=== PATIENT | male | born 1955 | race Two or more races ===

== ENCOUNTER → 2018-12-08 16:35 | Outpatient (CLI) | payer OTHER | END | disposition home or self-care (01) | LOC: D.LABREF 16:35 | PROVIDERS: ATTEND Internal Medicine Nephrology | DX: Z51.81 Encounter for therapeutic drug level monitoring (principal); Z79.01 Long term (current) use of anticoagulants ==

== ENCOUNTER 2019-01-17 08:00 | Observation (INO) | payer MEDICARE, MEDICAID ==
[2019-01-17] VITALS: BP 138/60
[~2019-01-17] VITALS: Ht 177.8 cm; Wt 109.6 kg
[2019-01-17 17:14] LABS: BASOPHILS 0.6 % (0-2); EOSINOPHILS 5.1 % (0-7); HEMATOCRIT 36.8 % (42.0-54.0); HEMOGLOBIN 11.7 g/dL (13.5-17.5); IMMATURE GRANULOCYTES 0.5 % (0-5); LYMPHOCYTES 8.6 % (15-50); MCH 29.8 pg (26.0-34.0); MCHC 31.8 g/dL (31.0-37.0); MCV 93.9 fL (80.0-100.0); MEAN PLATELET VOLUME 9.6 fL (7.4-10.4); MONOCYTES 7.4 % (2-11); NEUTROPHILS 77.8 % (40-80); PLATELET COUNT 185 10x3/uL (130-400); RBC 3.92 10x6/uL (4.20-6.10); RDW 16.8 % (11.5-14.5); WBC 8.2 10x3/uL (4.8-10.8)
[2019-01-17 17:49] LABS: ALBUMIN 3.1 g/dL (3.4-5.0); ANION GAP 17.1 mmol/L (8-16); BILIRUBIN - TOTAL 0.45 mg/dL (0.2-1.3); CARBON DIOXIDE 26.5 mmol/L (21.0-32.0); POTASSIUM - SERUM 4.6 mmol/L (3.5-5.1); PROTEIN - SERUM 6.6 g/dL (6.4-8.2)
[2019-01-17 18:18] VITALS: BP 151/65
[2019-01-17] MEDS ORDERED: NORVASC5 MG PO (18:27)
[2019-01-17] MEDS ORDERED: DONEPEZIL HCL5 MG PO (18:27)
[2019-01-17] MEDS ORDERED: C-10001000 MG PO (18:28)
[2019-01-17] MEDS ORDERED: COENZYME Q1030 MG PO (18:29)
[2019-01-17] MEDS ORDERED: CELEXA10 MG PO (18:29)
[2019-01-17] MEDS ORDERED: CARDURA1 MG PO (18:32)
[2019-01-17] MEDS ORDERED: FERROUS SULFAT325 MG PO (18:32)
[2019-01-17] MEDS ORDERED: FLUTICASONE PRO16 GM NASAL (18:33)
[2019-01-17] MEDS ORDERED: GABAPENTIN100 MG PO (18:33)
[2019-01-17] MEDS ORDERED: LANTUS SOL100 UNIT/1 SC (18:35)
[2019-01-17] MEDS ORDERED: ROBAXIN500 MG PO (18:36)
[2019-01-17] MEDS ORDERED: MIRALAX17 GM PO (18:36)
[2019-01-17] MEDS ORDERED: MIRAPEX0.25 MG PO (18:37)
[2019-01-17] MEDS ORDERED: HYDROCODON-ACE1 EA10 PO (18:38)
[2019-01-17] MEDS ORDERED: PHOSLO667 MG PO (18:39)
[2019-01-17] MEDS ORDERED: PROMOD LIQUID P30 M1 PO (18:40)
[2019-01-17] MEDS ORDERED: PRAVACHOL20 MG PO (18:40)
[2019-01-17] MEDS ORDERED: PROTONIX40 MG PO (18:41)
[2019-01-17] MEDS ORDERED: RANITIDINE HCL150 M1 PO (18:42)
[2019-01-17] MEDS ORDERED: RENA-VITE TABL0.8 MG PO (18:42)
[2019-01-17] MEDS ORDERED: SINGULAIR10 MG PO (18:43)
[2019-01-17] MEDS ORDERED: ZOLOFT50 MG PO (18:43)
[2019-01-17] MEDS ORDERED: SODIUM BICARBO650 MG PO (18:44)
[2019-01-17] MEDS ORDERED: TRAMADOL HCL E100 M1 PO (18:45)
[2019-01-17] MEDS ORDERED: ZYLOPRIM100 MG PO (18:46)
[2019-01-17 20:00] VITALS: BP 143/66
[2019-01-18 00:59] VITALS: BP 143/66
[2019-01-18 04:00] VITALS: BP 90/42
[2019-01-18 05:13] LABS: BASOPHILS 0.6 % (0-2); EOSINOPHILS 5.7 % (0-7); HEMATOCRIT 35.7 % (42.0-54.0); HEMOGLOBIN 11.3 g/dL (13.5-17.5); IMMATURE GRANULOCYTES 0.3 % (0-5); LYMPHOCYTES 14.5 % (15-50); MCH 29.6 pg (26.0-34.0); MCHC 31.7 g/dL (31.0-37.0); MCV 93.5 fL (80.0-100.0); MEAN PLATELET VOLUME 10.3 fL (7.4-10.4); MONOCYTES 7.6 % (2-11); NEUTROPHILS 71.3 % (40-80); PLATELET COUNT 191 10x3/uL (130-400); RBC 3.82 10x6/uL (4.20-6.10); RDW 16.8 % (11.5-14.5); WBC 7.3 10x3/uL (4.8-10.8)
[2019-01-18 05:26] LABS: INR 1.75 (0.85-1.17); PROTIME 19.8 SECONDS (11.6-15.0)
[2019-01-18 05:46] LABS: ANION GAP 15.7 mmol/L (8-16); CALCIUM 8.5 mg/dL (8.5-10.1); CARBON DIOXIDE 28.5 mmol/L (21.0-32.0); CREATININE - SERUM 6.1 mg/dL (0.6-1.3); POTASSIUM - SERUM 5.2 mmol/L (3.5-5.1)
[2019-01-18 13:01] VITALS: BP 144/65
--- NOTE | 2019-01-18 14:16 | MORECARE ---
CASE MANAGEMENT DISCHARGE SUMMARY PATIENT: INDU FALCON UNIT: [id number] ADM DATE: 01/17/19 AGE: 63 : 55 SEX: M ROOM/BED: D.2131 AUTHOR: TIM ROMANO PHYSICIAN: REFERRING PHYSICIAN: ANTOLIN FLOOD MD DATE OF SERVICE: 01/18/19 Discharge Plan Patient Name: INDU FALCON [facility] [facility] 1955 Planned Disposition: Home Anticipated Discharge Date: 01/19/19 Discharge Date: Expected LOS: 2 Initial Reviewer: [id number] Initial Review Date: 01/17/2019 Generated: 01/18/19 3:16 pm DCPIA - Discharge Planning Initial Assessment Updated by [email or web address]: Mae Brown on 01/18/19 2:14 pm * Is the patient Alert and Oriented? No * How many steps to enter\exit or inside your home? * PCP DR FLOOD, PCP AND SEE'S THE [place] DOCTOR ON ROUNDS * Pharmacy [facility] * Preadmission Environment Associate Publisher Acute Care Facility * Facility Name [facility] CB: [phone] F: [phone] * ADLs Partial Dependent * Partial ADLs (Assistance needed) Bathing Medication Management Transfers * Equipment Shower Chair Wheelchair * List name and contact numbers for known caregivers / representatives who currently or will assist patient after discharge: GUEVARA FALCON, SISTER, * Verbal permission to speak to the caregivers and representatives has been obtained from the patient. Yes * Community resources currently utilized None * Additional services required to return to the preadmission environment? No * Can the patient safely return to the preadmission environment? Yes * Has this patient been hospitalized within the prior 30 days at any hospital? No Patient Name: INDU FALCON Page 64387 at 1416 All edits/amendments must be made on the electronic document DICTATION DATE: 01/18/19 1416 CONCIERGE: ORSS 01/18/19 1416 RPT#: [id number] DC DATE: STATUS: ADM IN [facility] [address] [place] [address] END OF REPORT
[2019-01-18 14:23] VITALS: Ht 177.8 cm; Wt 109.6 kg
--- NOTE | 2019-01-18 14:24 | MORECARE ---
CASE MANAGEMENT DISCHARGE SUMMARY PATIENT: INDU FALCON UNIT: [id number] ADM DATE: 01/17/19 AGE: 63 : 55 SEX: M ROOM/BED: D.2131 AUTHOR: TIM ROMANO PHYSICIAN: REFERRING PHYSICIAN: ANTOLIN FLOOD MD DATE OF SERVICE: 01/18/19 Discharge Plan Patient Name: INDU FALCON Facility: [facility]:[place] : 1955 Planned Disposition: Home Anticipated Discharge Date: 01/19/19 Discharge Date: Expected LOS: 2 Initial Reviewer: [id number] Initial Review Date: 01/17/2019 Generated: 01/18/19 3:24 pm Comments DCP- Discharge Planning Updated by [id number]: Mae Brown on 01/18/19 1:[address] Patient Name: INDU FALCON Admission Status: Elective Accout number: [id number] Admission Date: 01-17-2019 : 1955 Admission Diagnosis: Attending: ANTOLIN FLOOD Current LOS: 1 Anticipated DC Date: 01-19-2019 Planned Disposition: Home Primary Insurance: HUMANA CHOICE PPO MCR ADVANT Discharge Planning Comments: WAS ASKED BY DR LOZADA TO FIND OUT IF THE PATIENT'S NH WOULD BRIDGE THERAPY WITH LOVENOX UNTIL THERAPEUTIC 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 THERE IS NO [facility] INFORMATION IN THE CHART AT ALL. WENT TO THE ROOM TO SPEAK WITH THE PATIENT AND HE IS VERY GROGGY, NOT ABLE TO STAY AWAKE FOR CONVERSATION. HIS SISTER GUEVARA IS AT BEDSIDE AND IS LISTED EMERGENCY CONTACT IN THE COMPUTER. IDENTIFIES ASKED AND GIVEN BY SISTER. ASKED HER WHAT FACILITY THE PATIENT CAME FROM. SHE STATED IT WAS [facility] BY THE [employer]. SHE STATED THAT HE PATIENT IS RETURNING TO THIS FACILITY. HE DOES REQUIRE ASSISTANCE WITH SOME ADL'S. PER HER, THE [facility] IS SUPPLYING NEEDED MEDICAL EQUIPMENT AND HIS MEDICATIONS. NO NEEDS VOICED AT THIS TIME. SPOKE WITH JUSTINA GRIJALVA, CLINICAL LIASON FOR THE [facility]. SHE CONFIRMED THAT THE FACILITY CAN DO LOVENOX. SHE STATED SHE WILL HAVE TO CONFIRM IF THE PATIENT IS INTERMEDIATE CARE OR SKILLED. IF SKILLED THE PATIENT IS GOING TO REQUIRE AUTH IN ORDER TO RETURN. WILL AWAIT RETURN CALL AND FAX UPDATE. Business Banking Sales Assistant: Mae Brown DCPIA - Discharge Planning Initial Assessment Updated by [email or web address]: Mae Brown on 01/18/19 2:14 pm * Is the patient Alert and Oriented? No * How many steps to enter\exit or inside your home? * PCP DR FLOOD, PCP AND SEE'S THE [place] DOCTOR ON ROUNDS * Pharmacy [facility] * Preadmission Environment [facility] Performer Acute Care Facility * Facility Name [facility] CB: [phone] F: [phone] * ADLs Partial Dependent * Partial ADLs (Assistance needed) Bathing Medication Management Transfers * Equipment Shower Chair Wheelchair * List name and contact numbers for known caregivers / representatives who currently or will assist patient after discharge: GUEVARA FALCON, SISTER, * Verbal permission to speak to the caregivers and representatives has been obtained from the patient. Yes * Community resources currently utilized None * Additional services required to return to the preadmission environment? No * Can the patient safely return to the preadmission environment? Yes * Has this patient been hospitalized within the prior 30 days at any hospital? No External Providers [facility] Next Contact Date: Service Request Date: Service Type: Resolution: Reviewer: Comments: Last DP export: 01/18/19 1:16 p Patient Name: INDU FALCON Page 30002 at 1424 All edits/amendments must be made on the electronic document DICTATION DATE: 01/18/191423 WEAPONS AND TACTICS INSTRUCTOR: ROSS 01/18/191423 RPT#: [id number] VA DATE: STATUS: ADM IN [facility] [address] [place] [address] END OF REPORT
[2019-01-18 17:42] VITALS: BP 121/76
[2019-01-18 20:00] VITALS: BP 149/90; BP 163/71
[2019-01-19] VITALS: BP 147/66
[2019-01-19 04:00] VITALS: BP 164/72
[2019-01-19 04:49] LABS: INR 1.53 (0.85-1.17); PROTIME 17.8 SECONDS (11.6-15.0)
[2019-01-19 04:51] LABS: BASOPHILS 0.3 % (0-2); EOSINOPHILS 4.4 % (0-7); HEMATOCRIT 34.7 % (42.0-54.0); HEMOGLOBIN 10.9 g/dL (13.5-17.5); IMMATURE GRANULOCYTES 0.2 % (0-5); MCH 29.6 pg (26.0-34.0); MCHC 31.4 g/dL (31.0-37.0); MCV 94.3 fL (80.0-100.0); MEAN PLATELET VOLUME 10.2 fL (7.4-10.4); MONOCYTES 7.5 % (2-11); NEUTROPHILS 77.6 % (40-80); PLATELET COUNT 194 10x3/uL (130-400); RBC 3.68 10x6/uL (4.20-6.10); RDW 16.7 % (11.5-14.5); WBC 9.1 10x3/uL (4.8-10.8)
[2019-01-19 05:03] LABS: ANION GAP 16.9 mmol/L (8-16); CALCIUM 8.2 mg/dL (8.5-10.1); CREATININE - SERUM 7.3 mg/dL (0.6-1.3); POTASSIUM - SERUM 5.9 mmol/L (3.5-5.1)
[2019-01-19 05:07] LABS: PHOSPHOROUS 10.1 mg/dL (2.5-4.9)
[2019-01-19] MEDS ORDERED: COUMADIN2.5 MG PO (08:06)
--- NOTE | 2019-01-19 12:05 | MORECARE ---
CASE MANAGEMENT DISCHARGE SUMMARY PATIENT: INDU FALCON UNIT: [id number] ADM DATE: 01/17/19 AGE: 63 : 55 SEX: M ROOM/BED: D.2131 AUTHOR: TIM ROMANO PHYSICIAN: REFERRING PHYSICIAN: ANTOLIN FLOOD MD DATE OF SERVICE: 01/19/19 Discharge Plan Patient Name: INDU FALCON [facility] [facility] 1955 Planned Disposition: Nursing Facility GREG Cert Anticipated Discharge Date: 01/19/19 Discharge Date: Expected LOS: 2 Initial Reviewer: [id number] Initial Review Date: 01/17/2019 Generated: 01/19/19 1:04 pm Comments DCP- Discharge Planning Updated by [id number]: Mae Brown on 01/18/19 1:[address] Patient Name: INDU FALCON Admission Status: Elective Accout number: [id number] Admission Date: 01-17-2019 : 1955 Admission Diagnosis: Attending: ANTOLIN FLOOD Current LOS: 1 Anticipated DC Date: 01-19-2019 Planned Disposition: Home Primary Insurance: HUMANA CHOICE PPO MCR ADVANT Discharge Planning Comments: WAS ASKED BY DR LOZADA TO FIND OUT IF THE PATIENT'S NH WOULD BRIDGE THERAPY WITH LOVENOX UNTIL THERAPEUTIC 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 THERE IS NO PENITENTIARY INFORMATION IN THE CHART AT ALL. WENT TO THE ROOM TO SPEAK WITH THE PATIENT AND HE IS VERY GROGGY, NOT ABLE TO STAY AWAKE FOR CONVERSATION. HIS SISTER GUEVARA IS AT BEDSIDE AND IS LISTED EMERGENCY CONTACT IN THE COMPUTER. IDENTIFIES ASKED AND GIVEN BY SISTER. ASKED HER WHAT FACILITY THE PATIENT CAME FROM. SHE STATED IT WAS [facility]. SHE STATED THAT HE PATIENT IS RETURNING TO THIS FACILITY. HE DOES REQUIRE ASSISTANCE WITH SOME ADL'S. PER HER, THE [facility] IS SUPPLYING NEEDED MEDICAL EQUIPMENT AND HIS MEDICATIONS. NO NEEDS VOICED AT THIS TIME. SPOKE WITH JUSTINA GRIJALVA, CLINICAL LIASON FOR THE [facility]. SHE CONFIRMED THAT THE FACILITY CAN DO LOVENOX. SHE STATED SHE WILL HAVE TO CONFIRM IF THE PATIENT IS SHELTER CARE OR SKILLED. IF SKILLED THE PATIENT IS GOING TO REQUIRE AUTH IN ORDER TO RETURN. WILL AWAIT RETURN CALL AND FAX UPDATE. Manager Privacy: Mae House DCPIA - Discharge Planning Initial Assessment Updated by [email or web address]: Mae Brown on 01/18/19 2:14 pm * Is the patient Alert and Oriented? No * How many steps to enter\exit or inside your home? * PCP DR FLOOD, PCP AND SEE'S THE ME DOCTOR ON ROUNDS * Pharmacy [facility] * Preadmission Environment Group Home Acute Care Facility * Facility Name [facility] CB: [phone] F: [phone] * ADLs Partial Dependent * Partial ADLs (Assistance needed) Bathing Medication Management Transfers * Equipment Shower Chair Wheelchair * List name and contact numbers for known caregivers / representatives who currently or will assist patient after discharge: GUEVARA FALCON, SISTER, * Verbal permission to speak to the caregivers and representatives has been obtained from the patient. Yes * Community resources currently utilized None * Additional services required to return to the preadmission environment? No * Can the patient safely return to the preadmission environment? Yes * Has this patient been hospitalized within the prior 30 days at any hospital? No Last DP export: 01/18/19 1:24 p Patient Name: INDU FALCON Page 71206 at 1205 All edits/amendments must be made on the electronic document DICTATION DATE: 01/19/191203 DIRECTOR OF PATIENT CARE: ROSS 01/19/191203 RPT#: [id number] DC DATE: STATUS: ADM IN [facility] [address] [place] [address] END OF REPORT
--- NOTE | 2019-01-19 12:13 | MORECARE ---
CASE MANAGEMENT DISCHARGE SUMMARY PATIENT: INDU FALCON UNIT: [id number] ADM DATE: 01/17/19 AGE: 63 : 55 SEX: M ROOM/BED: D.2131 AUTHOR: JUAN ANTONIO,DOC PHYSICIAN: REFERRING PHYSICIAN: ANTOLIN FLOOD MD DATE OF SERVICE: 01/19/19 Discharge Plan Patient Name: INDU FALCON Facility: [facility]:[place] : 1955 Planned Disposition: Nursing Facility GREG Cert Anticipated Discharge Date: 01/19/19 Discharge Date: Expected LOS: 2 Initial Reviewer: [id number] Initial Review Date: 01/17/2019 Generated: 01/19/19 1:12 pm Comments DCP- Discharge Planning Updated by [id number]: Oc Pérez on 01/19/19 11:[address] Patient Name: INDU FALCON Encounter No: [id number] : 1955 Primary Insurance: HUMANA CHOICE PPO MCR ADVANT Anticipated DC Date: 01-19-2019 Planned Disposition: Nursing Facility GREG Cert External Planned Provider: [facility] LONG TERM CARE MEDICAID BED DCP follow-up note: CM RECEIVED DISCHARGE ORDER, SPOKE TO JUSTINA OF THE [facility], WHO WILL ENSURE THAT MEDICATIONS CAN BE GIVEN AND CALL CM BACK WITH VAN ELECTROMYOGRAPHIC TECHNICIAN TIME IF EVERYTHING IS OK FOR PT'S RETURN TO THE [facility]. JUSTINA WILL ALSO NOTIFY CM IF PT WILL BE IN A SKILLED BED OR HOT REPAIRMAN CARE BED. CM FAX ED HOSPITAL UPDATE AND DISCHARGE INFORMATION TO THE [facility], . CM SPOKE TO PT IN ROOM WHO REPORTS THAT HE LIVES AT THE [facility] AND IS READY TO DISCHARGE BACK TODAY. THE [facility] TAKES PT VIA RETIREMENT VAN TO DIALYSIS THREE TIMES WEEKLY AND PT REPORTS ABILITY TO SIT FOR TRANSORTATION IN WHEELCHAIR. CM WAITING TO ENSURE MEDICATIONS CAN BE MET AT RETIREMENT; WHEN NOTIFIED BY RETIREMENT THAT PT CAN RETURN NURSE REPORT TO BE CALLED TO THE [facility] AT [phone]. PT TO TRANSPORT VIA [facility], TIME TO BE ARRANGED FOR ELECTROMYOGRAPHIC TECHNICIAN TODAY. 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 THERE IS NO RETIREMENT INFORMATION IN THE CHART AT ALL. WENT TO THE ROOM TO SPEAK WITH THE PATIENT AND HE IS VERY GROGGY, NOT ABLE TO STAY AWAKE FOR CONVERSATION. HIS SISTER GUEVARA IS AT BEDSIDE AND IS LISTED EMERGENCY CONTACT IN THE COMPUTER. IDENTIFIES ASKED AND GIVEN BY SISTER. ASKED HER WHAT FACILITY THE PATIENT CAME FROM. SHE STATED IT WAS THE [facility] BY THE [employer]. SHE STATED THAT HE PATIENT IS RETURNING TO THIS FACILITY. HE DOES REQUIRE ASSISTANCE WITH SOME ADL'S. PER HER, THE RETIREMENT IS SUPPLYING NEEDED MEDICAL EQUIPMENT AND HIS MEDICATIONS. NO NEEDS VOICED AT THIS TIME. SPOKE WITH JUSTINA GRIJALVA, CLINICAL LIASON FOR THE [facility]. SHE CONFIRMED THAT THE FACILITY CAN DO LOVENOX. SHE STATED SHE WILL HAVE TO CONFIRM IF THE PATIENT IS HOT REPAIRMAN CARE OR SKILLED. IF SKILLED THE PATIENT IS GOING TO REQUIRE AUTH IN ORDER TO RETURN. WILL AWAIT RETURN CALL AND FAX UPDATE. Double Bass Player: aMe Brown DCPIA - Discharge Planning Initial Assessment Updated by [id number]: Mae Brown on 01/18/19 2:14 pm * Is the patient Alert and Oriented? No * How many steps to enter\exit or inside your home? * PCP DR FLOOD, PCP AND SEE'S THE [place] DOCTOR ON ROUNDS * Pharmacy [facility] * Preadmission Environment Nursing Home Acute Care Facility * Facility Name [facility] CB: [phone] F: [phone] * ADLs Partial Dependent * Partial ADLs (Assistance needed) Bathing Medication Management Transfers * Equipment Shower Chair Wheelchair * List name and contact numbers for known caregivers / representatives who currently or will assist patient after discharge: GUEVARA FALCON, SISTER, * Verbal permission to speak to the caregivers and representatives has been obtained from the patient. Yes * Community resources currently utilized None * Additional services required to return to the preadmission environment? No * Can the patient safely return to the preadmission environment? Yes * Has this patient been hospitalized within the prior 30 days at any hospital? No Last DP export: 01/19/19 11:05 a Patient Name: INDU FALCON Page 40203 at 1213 All edits/amendments must be made on the electronic document DICTATION DATE: 01/19/191211 BIBLICAL STUDIES PROFESSOR: ROSS 01/19/191211 RPT#: [id number] DC DATE: STATUS: ADM IN [facility] [address] [place] [address] END OF REPORT
[2019-01-19] MEDS ORDERED: LOVENOX40 MG/0.4 SC (13:44)
--- NOTE | 2019-01-19 17:22 | MORECARE ---
CASE MANAGEMENT DISCHARGE SUMMARY PATIENT: INDU FALCON UNIT: [id number] ADM DATE: 01/17/19 AGE: 63 : 55 SEX: M ROOM/BED: D.2131 AUTHOR: JUAN ANTONIO,DOC PHYSICIAN: REFERRING PHYSICIAN: ANTOLIN FLOOD MD DATE OF SERVICE: 01/19/19 Discharge Plan Patient Name: INDU FALCON [facility]:[place] : 1955 Planned Disposition: Nursing Facility GREG Cert Anticipated Discharge Date: 01/19/19 Discharge Date: 01/19/2019 Expected LOS: 2 Initial Reviewer: [id number] Initial Review Date: 01/17/2019 Generated: 01/19/19 6:22 pm Comments DCP- Discharge Planning Updated by [id number]: Oc Stanton on 01/19/19 4:[address] Patient Name: INDU FALCON Encounter No: [id number] : 1955 Primary Insurance: HUMANA CHOICE PPO MCR ADVANT Anticipated DC Date: 01-19-2019 Planned Disposition: Nursing Facility GREG Cert External Planned Provider: [facility], LONG TERM CARE MEDICAID BED DCP follow-up note: CM RECEIVED DISCHARGE ORDER, SPOKE TO JUSTINA OF THE [facility], WHO WILL ENSURE THAT MEDICATIONS CAN BE GIVEN AND CALL CM BACK WITH VAN SUBSTATION OPERATOR TIME IF EVERYTHING IS OK FOR PT'S RETURN TO THE [facility]. JUSTINA WILL ALSO NOTIFY CM IF PT WILL BE IN A SKILLED BED OR ASSISTANT PROFESSOR IN FAMILY STUDIES CARE BED. CM FAX ED HOSPITAL UPDATE AND DISCHARGE INFORMATION TO THE [facility], . CM SPOKE TO PT IN ROOM WHO REPORTS THAT HE LIVES AT THE [facility] AND IS READY TO DISCHARGE BACK TODAY. THE [facility] TAKES PT VIA ASSISTED VAN TO DIALYSIS THREE TIMES WEEKLY AND PT REPORTS ABILITY TO SIT FOR TRANSORTATION IN WHEELCHAIR. CM WAITING TO ENSURE MEDICATIONS CAN BE MET AT ASSISTED; WHEN NOTIFIED BY ASSISTED THAT PT CAN RETURN NURSE REPORT TO BE CALLED TO THE [facility] AT [phone]. PT TO TRANSPORT VIA [facility], TIME TO BE ARRANGED FOR SUBSTATION OPERATOR TODAY. Oc Stanton, CASE MANAGEMENT Appended by Oc Stanton on 01/19/2019 17:17 CDT: IMPORTANT MESSAGE FROM MEDICARE PROVIDED AND EXPLAINED. 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 THERE IS NO ASSISTED INFORMATION IN THE CHART AT ALL. WENT TO THE ROOM TO SPEAK WITH THE PATIENT AND HE IS VERY GROGGY, NOT ABLE TO STAY AWAKE FOR CONVERSATION. HIS SISTER GUEVARA IS AT BEDSIDE AND IS LISTED EMERGENCY CONTACT IN THE COMPUTER. IDENTIFIES ASKED AND GIVEN BY SISTER. ASKED HER WHAT FACILITY THE PATIENT CAME FROM. SHE STATED IT WAS THE [facility] BY THE [employer]. SHE STATED THAT HE PATIENT IS RETURNING TO THIS FACILITY. HE DOES REQUIRE ASSISTANCE WITH SOME ADL'S. PER HER, THE ASSISTED IS SUPPLYING NEEDED MEDICAL EQUIPMENT AND HIS MEDICATIONS. NO NEEDS VOICED AT THIS TIME. SPOKE WITH JUSTINA GRIJALVA, CLINICAL LIASON FOR THE [facility]. SHE CONFIRMED THAT THE FACILITY CAN DO LOVENOX. SHE STATED SHE WILL HAVE TO CONFIRM IF THE PATIENT IS CUSTODIAL CARE OR SKILLED. IF SKILLED THE PATIENT IS GOING TO REQUIRE AUTH IN ORDER TO RETURN. WILL AWAIT RETURN CALL AND FAX UPDATE. Teacher Public Health: Mae Brown DCPIA - Discharge Planning Initial Assessment Updated by [id number]: Mae Brown on 01/18/19 2:14 pm * Is the patient Alert and Oriented? No * How many steps to enter\exit or inside your home? * PCP DR FLOOD, PCP AND SEE'S THE [place] DOCTOR ON ROUNDS * Pharmacy [facility] * Preadmission Environment [facility] Acute [facility] Facility * Facility Name [facility] CB: [phone] F: [phone] * ADLs Partial Dependent * Partial ADLs (Assistance needed) Bathing Medication Management Transfers * Equipment Shower Chair Wheelchair * List name and contact numbers for known caregivers / representatives who currently or will assist patient after discharge: GUEVARA FALCON, SISTER, * Verbal permission to speak to the caregivers and representatives has been obtained from the patient. Yes * Community resources currently utilized None * Additional services required to return to the preadmission environment? No * Can the patient safely return to the preadmission environment? Yes * Has this patient been hospitalized within the prior 30 days at any hospital? No Coverage Notice Reviewer: [id number] Minnie Stanton Notice Issued Date-Time: 01/19/2019 11:45 Notice Type: IM Discharge Notice Notice Delivered To: Patient Relationship to Patient: Costume Maker Name: Delivery Method: HAND - Hand Delivered Flores Days: Prior Verbal Notification: Recipient Understood Notice: Yes Recipient Signature: Yes Med Rec Note Co-signed by Attending: Coverage Notice Comment: Last DP export: 01/19/19 11:13 a Patient Name: INDU FALCON Page 30187 at 1722 All edits/amendments must be made on the electronic document DICTATION DATE: 01/19/191721 GLUER AND SLICER HAND: ROSS 01/19/191721 RPT#: [id number] DC DATE:01/19/19 STATUS: DIS IN [facility] [address] [place] [address] END OF REPORT
--- NOTE | 2019-01-20 10:04 | MORECARE ---
CASE MANAGEMENT DISCHARGE SUMMARY PATIENT: INDU FALCON UNIT: [id number] ADM DATE: 01/17/19 AGE: 63 : 55 SEX: M ROOM/BED: D.2131 AUTHOR: JUAN ANTONIO,DOC PHYSICIAN: REFERRING PHYSICIAN: ANTOLIN FOLOD MD DATE OF SERVICE: 01/20/19 Discharge Plan Patient Name: INDU FALCON Facility: [facility]:[place] : 1955 Planned Disposition: Nursing Facility GREG Cert Anticipated Discharge Date: 01/19/19 Discharge Date: 01/19/2019 Expected LOS: 2 Initial Reviewer: [email or web address] Initial Review Date: 01/17/2019 Generated: 01/20/19 11:04 am Comments DCP- Discharge Planning Updated by [email or web address]: Oc Stanton on 01/19/19 4:[address] Patient Name: INDU FALCON Encounter No: [id number] : 1955 Primary Insurance: [employer] CHOICE PPO MCR ADVANT Anticipated DC Date: 01-19-2019 Planned Disposition: Nursing Facility GREG Cert External Planned Provider: [facility], LONG TERM CARE MEDICAID BED DCP follow-up note: CM RECEIVED DISCHARGE ORDER, SPOKE TO JUSTINA OF [facility], WHO WILL ENSURE THAT MEDICATIONS CAN BE GIVEN AND CALL CM BACK WITH [facility]CEL POST WEIGHER TIME IF EVERYTHING IS OK FOR PT'S RETURN TO [facility]. JUSTINA WILL ALSO NOTIFY CM IF PT WILL BE IN A SKILLED BED OR FDC CARE BED. CM FAX ED HOSPITAL UPDATE AND DISCHARGE INFORMATION TO [facility], . CM SPOKE TO PT IN ROOM WHO REPORTS THAT HE LIVES AT [facility] AND IS READY TO DISCHARGE BACK TODAY. [facility] TAKES PT VIA PRISON VAN TO DIALYSIS THREE TIMES WEEKLY AND PT REPORTS ABILITY TO SIT FOR TRANSORTATION IN WHEELCHAIR. CM WAITING TO ENSURE MEDICATIONS CAN BE MET AT PRISON; WHEN NOTIFIED BY PRISON THAT PT CAN RETURN NURSE REPORT TO BE CALLED TO [facility] AT [phone]. PT TO TRANSPORT VIA [facility], TIME TO BE ARRANGED FOR PARCEL POST WEIGHER TODAY. Oc Stanton, CASE MANAGEMENT Appended by Oc Stanton on 01/19/2019 17:17 CDT: IMPORTANT MESSAGE FROM MEDICARE PROVIDED AND EXPLAINED. 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 THERE IS NO PRISON INFORMATION IN THE CHART AT ALL. WENT TO THE ROOM TO SPEAK WITH THE PATIENT AND HE IS VERY GROGGY, NOT ABLE TO STAY AWAKE FOR CONVERSATION. HIS SISTER GUEVARA IS AT BEDSIDE AND IS LISTED EMERGENCY CONTACT IN THE COMPUTER. IDENTIFIES ASKED AND GIVEN BY SISTER. ASKED HER WHAT FACILITY THE PATIENT CAME FROM. SHE STATED IT WAS [facility]. SHE STATED THAT HE PATIENT IS RETURNING TO THIS FACILITY. HE DOES REQUIRE ASSISTANCE WITH SOME ADL'S. PER HER, THE PRISON IS SUPPLYING NEEDED MEDICAL EQUIPMENT AND HIS MEDICATIONS. NO NEEDS VOICED AT THIS TIME. SPOKE WITH JUSTINA GRIJALVA, CLINICAL LIASON FOR [facility]. SHE CONFIRMED THAT THE FACILITY CAN DO LOVENOX. SHE STATED SHE WILL HAVE TO CONFIRM IF THE PATIENT IS FDC CARE OR SKILLED. IF SKILLED THE PATIENT IS GOING TO REQUIRE AUTH IN ORDER TO RETURN. WILL AWAIT RETURN CALL AND FAX UPDATE. Operational Test Mechanic: Mae Brown DCPIA - Discharge Planning Initial Assessment Updated by [email or web address]: Mae Brown on 01/18/19 2:14 pm * Is the patient Alert and Oriented? No * How many steps to enter\exit or inside your home? * PCP DR FLOOD, PCP AND [facility]S [facility] [place] [facility] * Pharmacy [facility] SUPPLIES MEDS * Preadmission Environment [facility] * Facility Name [facility] CB: [phone] F: [phone] * ADLs Partial Dependent * Partial ADLs (Assistance needed) Bathing Medication Management Transfers * Equipment Shower Chair Wheelchair * List name and contact numbers for known caregivers / representatives who currently or will assist patient after discharge: GUEVARA FALCON, SISTER, * Verbal permission to speak to the caregivers and representatives has been obtained from the patient. Yes * Community resources currently utilized None * Additional services required to return to the preadmission environment? No * Can the patient safely return to the preadmission environment? Yes * Has this patient been hospitalized within the prior 30 days at any hospital? No Coverage Notice Reviewer: [id number] Minnie Stanton Notice Issued Date-Time: 01/19/2019 11:45 Notice Type: IM Discharge Notice Notice Delivered To: Patient Relationship to Patient: Police Lieutenant Name: Delivery Method: HAND - Hand Delivered Flores Days: Prior Verbal Notification: Recipient Understood Notice: Yes Recipient Signature: Yes Med Rec Note Co-signed by Attending: Coverage Notice Comment: Last DP export: 01/19/19 4:22 p Patient Name: INDU FALCON Page [phone] at 1004 All edits/amendments must be made on the electronic document DICTATION DATE: 01/20/19 1003 CEPHALOMETRIC ANALYST: ROSS 01/20/19 1003 RPT#: [id number] DC DATE:01/19/19 STATUS: DIS IN [facility] [address] [place] [address] END OF REPORT
--- NOTE | 2019-01-25 10:49 | OP ---
PATIENT NAME: INDU PRAJAPATI MEDICAL RECORD: [id number] :55 LOCATION:D. D.2131 ADMISSION DATE:01/17/19 SURGEON: JACQUELYN ALONSO MD DATE OF OPERATION: 01/18/2019 REFERRING PHYSICIAN: Antolin Krishnamurthy MD PREOPERATIVE DIAGNOSES: Steal syndrome of left upper extremity associated with left radiocephalic wrist arteriovenous fistula and gangrenous ulceration of the second finger over the proximal interphalangeal joint. ADDITIONAL DIAGNOSES: End-stage renal disease, dependence on hemodialysis and diabetes mellitus. POSTOPERATIVE DIAGNOSES: Steal syndrome of left upper extremity associated with left radiocephalic wrist arteriovenous fistula and gangrenous ulceration of the second finger over the proximal interphalangeal joint with atherosclerotic peripheral arterial occlusive disease with gangrene involving the arteries of the left upper extremity. SURGEON: Jacquelyn Alonso MD ANESTHESIA: General with LMA per SEASONAL CLERK. OPERATION PERFORMED: Ligation of left wrist radiocephalic arterial venous fistula and implantation of a left axillary artery to axillary vein Artegraft prosthetic AVG and also ultrasound and fluoroscopic-guided implantation of a 19-cm long HemoSplit tunneled dialysis catheter via the right internal jugular vein. PREOPERATIVE NOTE: Mr. Prajapati is a very pleasant 63-year-old white male patient with end-stage renal disease and coronary artery disease with diabetes. He also has had mechanical aortic valve replacement. He has developed a steal syndrome with gangrenous ulceration over the lateral aspect of the left proximal interphalangeal joint. He is brought to the operating room today with plans to ligate his existing fistula and if possible go ahead and implant a prosthetic AV graft between the axillary artery and axillary vein in the left arm and for short term dialysis access implant a tunneled dialysis catheter via the right internal jugular vein. PROCEDURE IN DETAIL: With patient under general anesthesia with an LMA per SEASONAL CLERK, he was prepped and draped in a sterile manner for the HemoSplit insertion first. The right internal jugular vein was located and examined with Duplex ultrasound and was found to be normal. It was accessed with micropuncture technique and ultrasound images documented electronically. The micropuncture catheter was then exchanged over a guidewire, several dilators were inserted and lastly a dilator peel-away sheath. I chose a 19-cm HemoSplit, made an incision just beneath the clavicle and passed the catheter through a subcutaneous tunnel up to the cervical incision where it was placed through the peel-away sheath as the peel-away sheath was removed. The end of the catheter came to end in the right atrium in appropriate position. Both lumens were accessed and aspirated, free return of blood confirmed. They were then flushed with saline and then heparin locked, clamped and capped. The catheter was sutured to the skin near the entry site with 2-0 Prolene. The cervical incision was closed with interrupted inverted 3-0 Vicryl and Dermabond glue and a chlorhexidine Biopatch OPERATIVE REPORT [id number] INDU PRAJAPATI in standard CVL dressing were applied over the catheter entry site. The patient was then reprepped and redraped for surgery in the left arm. First, I made a longitudinal incision just proximal to the old incision at the left wrist and I exposed the fistula just proximal to the arterial anastomosis. The vein was dissected and encircled and ligated with 2-0 silk ligatures. That wound was subsequently injected with 0.25% Marcaine plain and closed with interrupted 3-0 Vicryl and running intracuticular 4-0 Stratafix and Dermabond glue. I examined the axilla again with ultrasound and noted excellent axillary artery and axillary vein for use today. I then made a transverse axillary incision and exposed these 2 vessels and controlled it with Silastic loops and when needed also vascular clamps. The artery was quite calcified and atherosclerotic. The vein was a good normal sized and very satisfactory for the outflow. An Artegraft was chosen and properly rinsed in saline. It was then beveled. The vein was occluded and an venotomy made and the vein flushed proximally and distally with heparinized saline after which the Artegraft was anastomosed end of graft to side of vein with running 6-0 Prolene. It was flushed then with heparinized saline. The suture line was hemostatic, it was sealed with BioGlue and some additional fibrillar was utilized to complete hemostasis. A counterincision was made in the graft tunneled downward to the counter incision just above the antecubital space and then tunneled back proximally to the axillary incision through anteriorly and laterally curving very superficial subcutaneous tunnel. When the occluding clamps and loops were released on the venous anastomosis, it was great and the graft was again flushed with heparinized saline and then clamped. It was beveled. The artery was occluded and opened and flushed proximally and distally with heparinized saline. The artery was severely calcified with an extensive atherosclerotic plaque, but actually a good lumen. The graft was anastomosed end-to-side of artery with running 6-0 Prolene. That suture line was also sealed with BioGlue and fibrillar and when the occluding clamps, and loops were released, excellent flow developed immediately within the new graft and both suture lines were hemostatic. I then examined him with handheld Doppler examining the radial and ulnar arteries with and without the new graft occluded. There is excellent pulsatile flow in both arteries into the hand and palmar arch. Capillary refill was excellent in the hand with some visibly developing hyperemic changes. Occlusion of the graft made minimal to no difference in the handheld continuous wave Doppler signals in the arterial and radial arteries at the wrist. I interpreted this as a totally successful procedure. The wounds were irrigated with Ancef/gentamicin solution and infiltrated with 0.25% Marcaine without epinephrine and closed with interrupted inverted 3-0 Vicryl and running intracuticular 4-0 Stratafix and Dermabond glue. All 3 incisions were dressed with Maxorb Ag, Tegaderm, and Cavilon skin prep and the patient awakened and taken to the recovery room in stable condition. Blood loss during the procedure was minimal, 2 to 5 cc. The patient was given 1 unit of fresh frozen plasma just following induction of anesthesia to complete reversal of his warfarin anticoagulation. No drains were used and all sponges, instruments, and needles were accounted for. No surgical specimen was submitted for histopathology. PLAN: The patient will remain an inpatient in the hospital. He can have dialysis here in the morning using his HemoSplit catheter. I will resume Lovenox low-molecular weight heparin injections every 12 hours starting this afternoon and plan to resume Coumadin therapy tomorrow. He will likely be discharged before his INR reaches a therapeutic level of 2 or more and I OPERATIVE REPORT [id number] INDU PRAJAPATI recommend that he be continued on Lovenox at home until such time and have his prothrombin time and INR monitored daily until then. TRANSINT:[id number] Voice Confirmation ID: [id number] DOCUMENT ID: [id number] cc: [facility] JACQUELYN ALONSO MD at 1049 CC: ANTOLIN KRISHNAMURTHY MD [id number] DICTATION DATE: 01/18/19 1222 LEAD GAME DESIGNER: 01/18/19 1309 DIS IN 01/19/19 [place] [id number] [facility], [facility]
== END 2019-01-19 16:04 | disposition home or self-care (01) ==
LOC: D.OPS 08:00 → EDSTATUS 08:00 → OBSVTIME 16:00 → D.M2 16:00 → D.OPS 01-18 08:00 → D.M2 01-19 16:04
PROVIDERS: Internal Medicine Nephrology; Surgery; ADMIT Internal Medicine Nephrology; ATTEND Internal Medicine Nephrology
DX: T82.898A Other specified complication of vascular prosthetic devices, implants and grafts, initial encounter (principal); N18.6 End stage renal disease; E11.52 Type 2 diabetes mellitus with diabetic peripheral angiopathy with gangrene; I96 Gangrene, not elsewhere classified; I12.0 Hypertensive chronic kidney disease with stage 5 chronic kidney disease or end stage renal disease; Y83.8 Other surgical procedures as the cause of abnormal reaction of the patient, or of later complication, without mention of misadventure at the time of the procedure; E11.22 Type 2 diabetes mellitus with diabetic chronic kidney disease; J43.9 Emphysema, unspecified; D63.1 Anemia in chronic kidney disease; G89.4 Chronic pain syndrome; E83.39 Other disorders of phosphorus metabolism